=== PATIENT | male | born 2000 | race Hispanic/Latino ===

== ENCOUNTER 2024-04-13 15:45 | Outpatient (CLI) | payer OTHER | END 2024-04-13 15:46 | disposition home or self-care (01) | LOC: SCSRAD 15:45 | DX: S89.92XA Unspecified injury of left lower leg, initial encounter (principal); M20.12 Hallux valgus (acquired), left foot; M79.5 Residual foreign body in soft tissue ==

== ENCOUNTER 2024-10-19 11:43 | Outpatient (CLI) | payer OTHER | END 2024-10-19 11:44 | disposition home or self-care (01) | LOC: SCSRAD 11:43 | PROVIDERS: ATTEND Student in an Organized Health Care Education/Training Program | DX: M25.552 Pain in left hip (principal); M25.562 Pain in left knee; K59.00 Constipation, unspecified; R19.5 Other fecal abnormalities | CPT/HCPCS: 74018 ==